=== PATIENT | male | born 1990 | race Two or more races ===

== ENCOUNTER 2021-02-17 10:37 | Emergency (ER) | payer OTHER ==
[~2021-02-17] VITALS: Ht 165.1 cm; Wt 59.0 kg
[2021-02-17 10:42] VITALS: BP 136/75
[2021-02-17] MEDS ORDERED: BACITRACIN ZINC OINT PACKET 1 EA PACKET TP ONE ×2 (11:30→12:17)
[2021-02-17] MEDS ORDERED: TDAP [DIPH/PERTUSSIS/TET] 0.5 ML VIAL IM ONE ×2 (11:30→12:11)
[2021-02-17] MEDS ORDERED: IBUP-1955 PO (13:11)
== END 2021-02-17 13:17 ==
LOC: ER 10:43
DX: S60.511A Abrasion of right hand, initial encounter (principal); X58.XXXA Exposure to other specified factors, initial encounter; Y93.89 Activity, other specified; Y92.89 Other specified places as the place of occurrence of the external cause; Y99.8 Other external cause status
CPT/HCPCS: 73110; 73130-TC; 90715